=== PATIENT | male | born 1935 | race Caucasian/White ===

== ENCOUNTER 2018-11-14 14:12 | Emergency (ER) | payer MEDICARE ==
--- NOTE | 2018-11-14 14:17 | Event Note ---
ED Screening Note Date of service: 11/14/18 Time: 14:17 ED Screening Note: 83 y o male presents with cellulitis/abscess to abdomen tender and swollen- This initial assessment/diagnostic orders/clinical plan/treatment(s) is/are subject to change based on patients health status, clinical progression and re- assessment by fellow clinical providers in the ED. Further treatment and workup at subsequent clinical providers discretion. Patient/guardian urged not to elope from the ED as their condition may be serious if not clinically assessed and managed. Initial orders include:
[2018-11-14 14:22] VITALS: BP 169/66
--- NOTE | 2018-11-14 15:16 | Emergency Department Report ---
Abscess Boil HPI - HPI Chief Complaint: Skin Rash Stated Complaint: BITE GRABIEL ON STOMACH Time Seen by Provider: 11/14/18 14:17 Duration: 3 Days Location: Abdomen Severity: Mild History: Yes Pain, Yes Previous History, No Fever, No Purulent Drainage, No Numbness, No Foreign Body, No Insect Bite HPI: abscess to abdominal wall x 3 days. hx same Home Medications: Previous Rx's Medication Instructions Recorded Last Taken Type Sulfamethoxazole/Trimethoprim 1 each PO BID #20 tablet 11/14/18 Unknown Rx [Bactrim DS TAB] Allergies/Adverse Reactions: Allergies Allergy/AdvReac Type Severity Reaction Status Date / Time No Known Allergies Allergy Unverified 11/14/18 14:17 ED Review of Systems ROS: Stated complaint: BITE GRABIEL ON STOMACH Other details as noted in HPI Comment: All other systems reviewed and negative ED Past Medical Hx - Social History Smoking Status: Former Smoker Substance Use Type: None - Medications Home Medications: Home Medications Medication Instructions Recorded Confirmed Last Taken Type Sulfamethoxazole/Trimethoprim 1 each PO BID #20 tablet 11/14/18 Unknown Rx [Bactrim DS TAB] ED Abscess Boil Physical Exam - Exam General: Vital signs noted. No distress. Alert and acting appropriately. Size: 3 cm Exam: Yes Tenderness, Yes Fluctuance, Yes Surrounding Cellulites/Erythema (RLQ abd wall), No Lymphangitis Exam: A&O x 3, no distress, well appearing, NCAT I & D Note - I & D Note I & D Note: betadine prep RLQ. small puncture w 11 blade, no anesthesia. significant purulent drainage. dressing applied. tolerated well ED Course Vital Signs 11/14/18 14:20 Temperature 98.4 F Pulse Rate 89 Respiratory 18 Rate Blood Pressure 169/66 O2 Sat by Pulse 97 Oximetry Critical care attestation.: If time is entered above; I have spent that time in minutes in the direct care of this critically ill patient, excluding procedure time. ED Medical Decision Making - Medical Decision Making abd wall abscess, no systemic infection I&D done, fu PCP - Differential Diagnosis abscess, cellulitis ED Disposition Clinical Impression: Abdominal wall abscess Disposition: DC-01 TO HOME OR SELFCARE Is pt being admited?: No Condition: Good Instructions: Abscess (ED), Abscess Incision and Drainage (ED) Prescriptions: Sulfamethoxazole/Trimethoprim [Bactrim DS TAB] 1 each PO BID #20 tablet Referrals: CASH SUAREZ MD [Referring] - 3-5 Days Time of Disposition: 15:15
== END 2018-11-14 15:30 | disposition home or self-care (01) ==
LOC: ED 14:12
DX: L02.211 Cutaneous abscess of abdominal wall (principal); Z87.891 Personal history of nicotine dependence